=== PATIENT | female | born 1955 | race Two or more races ===

== ENCOUNTER 2022-09-05 09:23 | Emergency (ER) | payer BC ==
[~2022-09-05] VITALS: Ht 157.5 cm; Wt 65.8 kg
--- NOTE | 2022-09-05 10:12 | NUR ---
XRAY AT BEDSIDE
[2022-09-05] MEDS ORDERED: MORPHINE SULFATE INJ 2 MG/ML DISP.SYRIN IM ONE (10:30)
[2022-09-05] MEDS ORDERED: MORPHINE SULFATE INJ 4 MG/ML DISP.SYRIN ONE (10:39)
--- NOTE | 2022-09-05 11:16 | NUR ---
Sugar Tong splint applied by TRENT Holcomb per orders
[2022-09-05] MEDS ORDERED: TRAM50TA2 PO (11:32)
[2022-09-05 11:43] VITALS: BP 152/91
--- NOTE | 2022-09-05 11:51 | NUR ---
Patient discharged to home in stable condition, ambulating. Written and verbal after care instructions given. Patient verbalizes understanding of instruction.
== END 2022-09-05 11:52 | disposition home or self-care (01) ==
LOC: ER 09:34
DX: S52.551A Other extraarticular fracture of lower end of right radius, initial encounter for closed fracture (principal); S52.234A Nondisplaced oblique fracture of shaft of right ulna, initial encounter for closed fracture; S20.211A Contusion of right front wall of thorax, initial encounter; I10 Essential (primary) hypertension; E11.9 Type 2 diabetes mellitus without complications; W01.0XXA Fall on same level from slipping, tripping and stumbling without subsequent striking against object, initial encounter; Y93.89 Activity, other specified; Y92.89 Other specified places as the place of occurrence of the external cause; Y99.8 Other external cause status
CPT/HCPCS: 71100-TC; 73090-TC; 73110; J2270